=== PATIENT | female | born 1980 | race Caucasian/White ===

== ENCOUNTER 2021-06-24 12:23 | Emergency (ER) | payer SELFPAY ==
[2021-06-24] MEDS ORDERED: Lorazepam 2 MG/ML VIAL ONE (12:57)
== END 2021-06-24 13:46 | disposition home or self-care (01) ==
LOC: BURERS 12:23
DX: F41.9 Anxiety disorder, unspecified (principal); R20.0 Anesthesia of skin
CPT/HCPCS: 96372; 99283; J2060

== ENCOUNTER 2022-01-31 18:48 | Emergency (ER) | payer SELFPAY ==
[2022-01-31] MEDS ORDERED: Lidocaine 1% PF 5 ML VIAL ONE (18:56)
[2022-01-31] MEDS ORDERED: Lidocaine 2% PF 5 ML VIAL ONE (18:56)
[2022-01-31] MEDS ORDERED: Boostrix 0.5 ML (Tdap) VIAL (>/=7 yrs of age) ONE (19:24)
[2022-01-31] MEDS ORDERED: Sulfameth/Trimethoprim DS 800-160mg TAB ONE (19:34)
== END 2022-01-31 19:45 | disposition home or self-care (01) ==
LOC: BURERS 18:48
DX: S01.81XA Laceration without foreign body of other part of head, initial encounter (principal); Z23 Encounter for immunization; X58.XXXA Exposure to other specified factors, initial encounter
CPT/HCPCS: 12011; 90471; 90715; J2001

== ENCOUNTER 2023-07-10 18:32 | Emergency (ER) | payer OTHER, SELFPAY ==
[2023-07-10] MEDS ORDERED: Ibuprofen 800 MG TAB ONE (18:50)
[2023-07-10] MEDS ORDERED: Lidocaine 1% (PF) 30 ML VIAL ONE (19:22)
[2023-07-10] MEDS ORDERED: Lidocaine 1% PF 5 ML VIAL ONE (19:23)
== END 2023-07-10 20:22 | disposition home or self-care (01) ==
LOC: BURERS 18:32
DX: S62.617A Displaced fracture of proximal phalanx of left little finger, initial encounter for closed fracture (principal); S60.052A Contusion of left little finger without damage to nail, initial encounter; W01.0XXA Fall on same level from slipping, tripping and stumbling without subsequent striking against object, initial encounter; Y99.0 Civilian activity done for income or pay
CPT/HCPCS: 26725; J2001